=== PATIENT | male | born 1990 | race Caucasian/White ===

== ENCOUNTER 2020-05-02 05:07 | Emergency (ER) | payer MEDICAID ==
[~2020-05-02] VITALS: Ht 167.6 cm; Wt 60.8 kg
[2020-05-02 05:20] VITALS: Ht 167.6 cm; Wt 60.8 kg
[2020-05-02 06:38] VITALS: BP 122/82
== END 2020-05-02 06:38 | disposition home or self-care (01) ==
LOC: ED 05:07
DX: K62.89 Other specified diseases of anus and rectum (principal); K59.00 Constipation, unspecified

== ENCOUNTER 2020-06-27 05:30 | Emergency (ER) | payer OTHER ==
[~2020-06-27] VITALS: Ht 167.6 cm; Wt 62.2 kg
[2020-06-27 05:44] VITALS: Ht 167.6 cm; Wt 62.2 kg
[2020-06-27 06:43] VITALS: BP 149/94
== END 2020-06-27 06:43 | disposition home or self-care (01) ==
LOC: ED 05:30
DX: S39.012A Strain of muscle, fascia and tendon of lower back, initial encounter (principal); X58.XXXA Exposure to other specified factors, initial encounter; Y93.89 Activity, other specified; Y92.89 Other specified places as the place of occurrence of the external cause; Y99.8 Other external cause status

== ENCOUNTER 2020-06-29 09:26 | Emergency (ER) | payer OTHER ==
[~2020-06-29] VITALS: Ht 167.6 cm; Wt 54.4 kg
[2020-06-29 09:40] VITALS: BP 132/78; Ht 167.6 cm; Wt 54.4 kg
== END 2020-06-29 10:22 | disposition home or self-care (01) ==
LOC: ED 09:26
DX: M54.5 Low back pain (principal)

== ENCOUNTER 2020-07-01 12:58 | Emergency (ER) | payer OTHER ==
[~2020-07-01] VITALS: Ht 167.6 cm; Wt 64.0 kg
[2020-07-01 12:59] VITALS: Ht 167.6 cm; Wt 64.0 kg
[2020-07-01 13:58] VITALS: BP 138/71
== END 2020-07-01 13:58 | disposition home or self-care (01) ==
LOC: ED 12:58
DX: K29.00 Acute gastritis without bleeding (principal); F17.210 Nicotine dependence, cigarettes, uncomplicated; Z98.890 Other specified postprocedural states
CPT/HCPCS: 99406; Q0162